=== PATIENT | female | born 1980 | race Caucasian/White ===

== ENCOUNTER 2016-11-23 11:50 | Emergency (ER) | payer SELFPAY ==
[~2016-11-23] VITALS: Ht 162.6 cm; Wt 72.7 kg
[2016-11-23 11:53] VITALS: Ht 162.6 cm; Wt 72.7 kg
[2016-11-23] MEDS ORDERED: ONDANSETRON 4 MG INJ IV STA (12:00)
[2016-11-23] MEDS ORDERED: SOD CHLORIDE 0.9% 1,000 ML IV STA (12:00)
[2016-11-23] MEDS ORDERED: LEVETIRACETAM 1000 MG (PMX) 100 ML IVPB ONE (12:00)
[2016-11-23 12:27] LABS: ADD SCAN DIFF NO
[2016-11-23 12:28] LABS: BASOPHILS % 0.3 % (0.0-2.0); EOSINOPHILS # 0.1 10^3/ul (0.0-0.5); EOSINOPHILS % 1.2 % (0.0-7.0); HEMATOCRIT 38.8 % (37.0-47.0); HEMOGLOBIN 12.8 g/dl (12.0-16.0); LYMPHOCYTES % 18.6 % (15.0-51.0); MEAN CORPUSCULAR HEMOGLOBIN 29.4 pg (29.0-33.0); MEAN PLATELET VOLUME 9.8 fl (7.4-10.4); MONOCYTE # 0.6 10^3/ul (0.3-0.9); MONOCYTES % 5.6 % (0.0-11.0); NEUTROPHIL # 7.8 10^3/ul (1.6-7.5); NEUTROPHILS % 73.8 % (39.0-77.0); PLATELET COUNT 287 10^3/UL (140-415); RED BLOOD COUNT 4.36 10^6/ul (4.20-5.40); WHITE BLOOD COUNT 10.5 10^3/ul (4.8-10.8)
[2016-11-23 12:40] LABS: CALCIUM 8.9 mg/dl (8.4-10.2); CREATININE 0.77 mg/dl (0.44-1.00); POTASSIUM 4.1 mmol/L (3.5-5.1)
[2016-11-23 13:30] VITALS: BP 111/67; PULSE 66; RESP 18
[2016-11-23] MEDS ORDERED: LEVE500V10 IVPB (13:39)
--- NOTE | 2016-11-23 14:01 | ERD ---
ER Documentation Chief Complaint Date/Time DATE: 11/23/16 TIME: 13:57 Chief Complaint BROUGHT IN VIA EMS DUE TO SEIZURE HPI This 36-year-old female presents after a short duration generalized tonic- clonic seizure. Seizure was first witnessed by her friend by the did calm to witness the last one third of the seizure. It lasted approximately 3 minutes. The saw 1 minute in which the patient did have generalized tonic-clonic movements and had 6 saliva in her mouth. She then had a period of approximately 2-3 minutes where she was awake but not responding to questions. After this 2-3 minutes. The patient had normal mental status. She has a history of prior seizures for which she is not on any medication. She did have CAT scan done on prior seizure which did not show any acute pathology. She states that she has mild nausea but no headache. ROS All systems reviewed and are negative except as per history of present illness. Medications Home Meds Active Scripts Levetiracetam (Keppra) 500 Mg/5 Ml Vial, 500 MG IVPB Q12, #60 VIAL (DILUTED IN NS 100 ML) Prov:DANIELA PROCTOR DO 11/23/16 Physical Exam Vitals Vital Signs Date Time Temp Pulse Resp B/P Pulse Ox O2 Delivery O2 Flow Rate FiO2 11/23/16 11:53 97.9 84 18 104/53 97 Physical Exam Const: [] No distress Head: Atraumatic Eyes: Normal Conjunctiva EOMI, PERRLA ENT: Normal External Ears, Nose and Mouth., No tongue lesions Neck: Full range of motion..~ No meningismus. Resp: Clear to auscultation bilaterally Cardio: Regular rate and rhythm, no murmurs Abd: Soft, non tender, non distended. Normal bowel sounds Skin: No petechiae or rashes Back: No midline or flank tenderness Ext: No cyanosis, or edema Neur: Awake and alert and oriented 3, cranial nerves II through XII intact, no cerebellar deficits, normal gait Psych: Normal Mood and Affect Result Diagram: 11/23/16 1210 11/23/16 1210 Results 24 hrs Laboratory Tests Test 11/23/16 12:10 White Blood Count 10.510^3/ul Red Blood Count 4.3610^6/ul Hemoglobin 12.8g/dl Hematocrit 38.8% Mean Corpuscular Volume 89.0fl Mean Corpuscular Hemoglobin 29.4pg Mean Corpuscular Hemoglobin Concent 33.0g/dl Red Cell Distribution Width 13.0% Platelet Count 80207^3/UL Mean Platelet Volume 9.8fl Neutrophils % 73.8% Lymphocytes % 18.6% Monocytes % 5.6% Eosinophils % 1.2% Basophils % 0.3% Nucleated Red Blood Cells % 0.0/100WBC Neutrophils # 7.810^3/ul Lymphocytes # 2.010^3/ul Monocytes # 0.610^3/ul Eosinophils # 0.110^3/ul Basophils # 0.010^3/ul Nucleated Red Blood Cells # 0.010^3/ul Sodium Level 137mmol/L Potassium Level 4.1mmol/L Chloride Level 105mmol/L Carbon Dioxide Level 28mmol/L Anion Gap 8 Blood Urea Nitrogen 14mg/dl Creatinine 0.77mg/dl Glucose Level 85mg/dl Bedside Glucose 76mg/dL Calcium Level 8.9mg/dl Current Medications Medications (Trade) Dose Ordered Sig/Walker Route PRN Reason Start Time Stop Time Status Last Admin Dose Admin Sodium Chloride (NS) 1,000 ml @ 1,000 mls/hr Q1H STAT IV 11/23/16 12:00 11/23/16 12:59 DC 11/23/16 12:21 Ondansetron HCl 4 mg 4 mg ONCE STAT IV 11/23/16 12:00 11/23/16 12:02 DC 11/23/16 12:20 Levetiracetam (Keppra 1,000mg/ 100ml (Pmx)) 100 ml @ 400 mls/hr ONCE ONCE IVPB 11/23/16 12:00 11/23/16 12:14 DC 11/23/16 12:44 Procedures/MDM Recurrent seizure 36-year-old female. She is given a liter of normal saline and loaded with 1 g of Keppra in the emergency room. She has no electrolyte abnormalities or other serious laboratory abnormalities. She does not want to repeat CAT scan imaging if she is arty had that. I agree with this decision. I am going to discharge her on Keppra 500 mg twice a day pending a neurological evaluation. The patient did not have insurance or a primary care doctor. I registration [facility] and I'm giving her a list of low-cost connect which she can follow-up within the next couple of days. Also given her instructions to obtain a neurological referral. Referral work note tomorrow since she can return to work the day after tomorrow but cannot drive or perform any heavy lifting tasks. Also told the patient that she should not drive until cleared by a neurologist. Return precautions to ER for any recurrent seizure or headache or any other concerning symptoms. Departure Diagnosis: Primary Impression: Seizure disorder Condition: Stable Patient Instructions: Seizure, Recurrent [Adult] Referrals: [facility] YOU HAVE RECEIVED A MEDICAL SCREENING EXAM AND THE RESULTS INDICATE THAT YOU DO NOT HAVE A CONDITION THAT REQUIRES URGENT TREATMENT IN THE EMERGENCY DEPARTMENT. FURTHER EVALUATION AND TREATMENT OF YOUR CONDITION CAN WAIT UNTIL YOU ARE SEEN IN YOUR DOCTORS OFFICE WITHIN THE NEXT 1-2 DAYS. IT IS YOUR RESPONSIBILITY TO MAKE AN APPOINTMENT FOR FOLOW-UP CARE. IF YOU HAVE A PRIMARY DOCTOR --you should call your primary doctor and schedule an appointment IF YOU DO NOT HAVE A PRIMARY DOCTOR YOU CAN CALL OUR PHYSICIAN REFERRAL HOTLINE AT IF YOU CAN NOT AFFORD TO SEE A PHYSICIAN YOU CAN CHOSE FROM THE FOLLOWING [facility] CL[facility]ICS [facility] [id number] [facility] [address] [facility] [facility] [address] [facility] [facility] [address] [facility]. [facility] [address] [facility] [facility]. [address] Additional Instructions: Call your primary care doctor TOMORROW for an appointment during the next 1-2 days and a referral for a Neurologist. See the doctor sooner or return here if your condition worsens before your appointment time. DANIELA PROCTOR DO Nov 23, 2016 14:01
== END 2016-11-23 14:40 | disposition home or self-care (01) ==
LOC: E/R 11:50
DX: G40.909 Epilepsy, unspecified, not intractable, without status epilepticus (principal)
CPT/HCPCS: 80048; 82962; 85025; J1953; J2405; J7030; 36415; 96374; 96375